=== PATIENT | male | born 1995 | race Caucasian/White ===

== ENCOUNTER 2023-08-25 17:15 | Emergency (ER) | payer OTHER ==
[~2023-08-25] VITALS: Ht 180.3 cm; Wt 113.0 kg
[2023-08-25 17:24] VITALS: O2SAT 97
[2023-08-25 18:01] LABS: HEMATOCRIT. 43.2 % (42.0-52.0); HEMOGLOBIN. 14.5 g/dL (14.0-18.0); MEAN CORPUSCULAR HEMOGLOBIN 30.4 pg (28.0-32.0); MEAN CORPUSCULAR HGB CONC 33.6 g/dL (31.0-37.0); MEAN CORPUSCULAR VOLUME 90.5 fL (80.0-94.0); MEAN PLATELET VOLUME 7.6 fl (7.4-10.4); PLATELET 184 x1000/uL (130-400); RED BLOOD CELL COUNT 4.77 mill/uL (4.7-6.1); RED CELL DISTRIBUTION WIDTH 13.4 % (11.6-14.6); WHITE BLOOD COUNT 7.5 x1000/uL (4.5-11.0)
[2023-08-25] MEDS ORDERED: ONDANSETRON HCL 4MG/2ML INJ IV STA (18:04)
[2023-08-25 18:08] LABS: DIFFERENTIAL COMMENT 1
[2023-08-25] MEDS ORDERED: SODIUM CHLORIDE 0.9% 1,000 ML IV ONE (18:15)
[2023-08-25 18:16] LABS: ALANINE AMINOTRANSFERASE 91 IU/L (10-49); ALBUMIN 4.2 g/dL (3.2-4.8); ASPARTATE AMINOTRANSFERASE 44 IU/L (<34); BILIRUBIN TOTAL 0.7 mg/dL (0.1-1.0); CALCIUM 8.6 mg/dL (8.7-10.4); CARBON DIOXIDE 23 mEq/L (21-32); CHLORIDE 105 mEq/L (98-107); CREATININE 0.9 mg/dL (0.6-1.3); GLUCOSE 126 mg/dL (70-105); POTASSIUM 4.4 mEq/L (3.5-5.1); PROTEIN TOTAL 6.9 g/dL (6.0-8.3); SODIUM 137 mEq/L (136-145); UREA NITROGEN BLOOD 18 mg/dL (9-23)
[2023-08-25 18:44] LABS: TROPONIN I HIGH SENSITIVITY 7 ng/L (3.0-53)
[2023-08-25 18:59] LABS: ETHANOL BLOOD < 10 mg/dL (<10)
[2023-08-25 21:24] LABS: PLATELET ESTIMATE NORMAL
[2023-08-25] MEDS ORDERED: ONDA4TAB11 PO (21:37)
[2023-08-25] MEDS ORDERED: ONDANSETRON 4MG ODT PO ONE (21:45)
[2023-08-25 22:08] VITALS: BP 110/77; PULSE 89; RESP 20; TEMP 98.3
== END 2023-08-25 22:11 | disposition home or self-care (01) ==
LOC: ER 17:15
DX: R55 Syncope and collapse (principal); G93.0 Cerebral cysts; J32.9 Chronic sinusitis, unspecified; I10 Essential (primary) hypertension
CPT/HCPCS: 80053; 80320; 83690; 85025; 84484; 36415; 71045; 70450; 93005; 96361; 96374; 99285; Q0162; J2405; J7030; Z7610; G0480